=== PATIENT | male | born 1980 | race Caucasian/White ===

== ENCOUNTER 2016-11-21 12:25 | Emergency (ER) | payer OTHER | END 2016-11-21 14:10 | disposition home or self-care (01) | LOC: ER 12:25 | DX: R55 Syncope and collapse (principal); R19.7 Diarrhea, unspecified; F41.9 Anxiety disorder, unspecified; F32.9 Major depressive disorder, single episode, unspecified; I10 Essential (primary) hypertension; G43.909 Migraine, unspecified, not intractable, without status migrainosus; Z79.899 Other long term (current) drug therapy; Z88.2 Allergy status to sulfonamides; Z88.1 Allergy status to other antibiotic agents | CPT/HCPCS: 36415; 80307; 96360 ==

== ENCOUNTER 2016-12-12 20:12 | Emergency (ER) | payer OTHER | END 2016-12-13 00:05 | disposition home or self-care (01) | LOC: ER 20:12 | DX: R42 Dizziness and giddiness (principal); R00.2 Palpitations; F32.9 Major depressive disorder, single episode, unspecified; F41.9 Anxiety disorder, unspecified; I10 Essential (primary) hypertension; G43.909 Migraine, unspecified, not intractable, without status migrainosus; Z79.899 Other long term (current) drug therapy; Z88.0 Allergy status to penicillin; Z88.1 Allergy status to other antibiotic agents; Z88.2 Allergy status to sulfonamides | CPT/HCPCS: 36415; 96374 ==

== ENCOUNTER 2016-12-14 21:35 | Emergency (ER) | payer OTHER | END 2016-12-14 23:05 | disposition home or self-care (01) | LOC: ER 21:35 | DX: R20.2 Paresthesia of skin (principal); R42 Dizziness and giddiness; F32.9 Major depressive disorder, single episode, unspecified; F41.9 Anxiety disorder, unspecified; I10 Essential (primary) hypertension; G43.909 Migraine, unspecified, not intractable, without status migrainosus; E66.9 Obesity, unspecified; Z79.899 Other long term (current) drug therapy; Z88.1 Allergy status to other antibiotic agents; Z88.2 Allergy status to sulfonamides | CPT/HCPCS: 36415; 96374; 96375; J1200; J2060; J2765 ==